=== PATIENT | female | born 1980 | race Caucasian/White ===

== ENCOUNTER 2019-12-05 11:43 | Outpatient (CLI) | payer MEDICAID, SELFPAY ==
[2019-12-05 12:15] LABS: Basophils # 0.1 10^3/uL (0.0-0.1); Basophils % 0.6 %; Eosinophils # 0.1 10^3/uL (0.0-0.8); Eosinophils % 1.1 %; Hematocrit 48.7 % (37.0-47.0); Hemoglobin 15.7 g/dL (11.5-15.3); LAB Peripheral Smear Sent for Review; Lymphocytes # 2.4 10^3/uL (0.8-4.8); Lymphocytes % 21.7 %; Mean Corpuscular HGB Conc 32.2 g/dL (30.0-36.0); Mean Corpuscular Hemoglobin 30.7 pg (28.0-34.0); Mean Corpuscular Volume 95.1 fL (81-99); Mean Platelet Volume 9.1 fL (7.4-10.4); Monocytes # 0.9 10^3/uL (0.2-0.9); Monocytes % 8.1 %; Neutrophils # 7.4 10^3/uL (1.8-7.7); Neutrophils % 68.1 %; Nucleated Red Blood Cells % 0 %; Platelet Count 249 10^3/cmm (130-400); Red Blood Count 5.12 10^6/uL (4.1-5.3); Red Cell Distribution Width 12.6 % (12.1-15.1); White Blood Count 10.9 10^3/uL (4.0-10.0)
[2019-12-11 08:27] LABS: CALR Exon 9 Mutation NOT DETECTED (NOT DETECTED); CSF3R Exon 14/17 Mutation NOT DETECTED (NOT DETECTED); JAK2 Exon 12 Mutation NOT DETECTED (NOT DETECTED); JAK2 V617 Block Specimen ID NG; JAK2 V617 Clinical Indication NG; JAK2 V617 Mutation NOT DETECTED (NOT DETECTED); JAK2 V617 Specimen Source NG; MPL Exon 12 Mutation NOT DETECTED (NOT DETECTED)
== END 2019-12-05 11:44 | disposition home or self-care (01) ==
LOC: LAB 11:49
PROVIDERS: PCP Family Medicine; Visit Provider Family Medicine
DX: D72.829 Elevated white blood cell count, unspecified (principal); D75.1 Secondary polycythemia
CPT/HCPCS: 36415; 80500; 85025

== ENCOUNTER → 2020-01-09 13:48 | Outpatient (BNVA) | payer MEDICAID, SELFPAY | PROVIDERS: PCP Family Medicine; Visit Provider Obstetrics & Gynecology | DX: Z30.9 Encounter for contraceptive management, unspecified (principal) | CPT/HCPCS: 81025 ==

== ENCOUNTER → 2020-04-23 10:59 | Outpatient (BNVA) | payer MEDICAID, SELFPAY | PROVIDERS: PCP Family Medicine; Visit Provider Obstetrics & Gynecology | DX: N83.291 Other ovarian cyst, right side (principal); R10.2 Pelvic and perineal pain | CPT/HCPCS: 76830 ==

== ENCOUNTER → 2020-05-08 08:44 | Outpatient (BNVA) | payer MEDICAID, SELFPAY | PROVIDERS: PCP Family Medicine; Visit Provider Obstetrics & Gynecology | DX: Z11.59 Encounter for screening for other viral diseases (principal) | CPT/HCPCS: 87635 ==

== ENCOUNTER 2020-05-13 07:59 | Day surgery (SDC) | payer MEDICAID, SELFPAY ==
[2020-05-11 11:10] VITALS: BMI 26.6
--- NOTE | 2020-05-11 11:51 | SUR.PREOP ---
Anesthesia unavailable to see patient at preop visit. Was tied up in ER with an airway. Will see day of surgery.
[2020-05-11 12:44] LABS: Add Urine Microscopic? NO
[2020-05-11 12:49] LABS: Basophils # 0.1 10^3/uL (0.0-0.1); Basophils % 0.5 %; Eosinophils # 0.2 10^3/uL (0.0-0.8); Eosinophils % 1.1 %; Hematocrit 46.9 % (37.0-47.0); Hemoglobin 15.2 g/dL (11.5-15.3); Lymphocytes # 3.2 10^3/uL (0.8-4.8); Lymphocytes % 21.4 %; Mean Corpuscular HGB Conc 32.4 g/dL (30.0-36.0); Mean Corpuscular Hemoglobin 31.2 pg (28.0-34.0); Mean Corpuscular Volume 96.3 fL (81-99); Mean Platelet Volume 10.2 fL (7.4-10.4); Monocytes # 0.8 10^3/uL (0.2-0.9); Monocytes % 5.5 %; Neutrophils # 10.56 10^3/uL (1.8-7.7); Neutrophils % 71.1 %; Nucleated Red Blood Cells % 0 %; Platelet Count 242 10^3/cmm (130-400); Red Blood Count 4.87 10^6/uL (4.1-5.3); Red Cell Distribution Width 12.7 % (12.1-15.1); White Blood Count 14.9 10^3/uL (4.0-10.0)
[2020-05-11 12:51] LABS: OR HCG Qualitative Urine Negative (Negative)
[2020-05-11 12:56] LABS: Bilirubin Urine Neg (Negative); Blood Urine Neg (Negative); Glucose Urine UA Norm (Normal); Ketones Urine Negative (Negative); Leukocyte Esterase Urine Negative (Negative); Nitrate Urine Negative (Negative); Protein Urine Neg (Negative); Urine Appearance Clear (CLEAR); Urine Color Yellow (Yellow); Urobilinogen Urine Neg (Negative); pH Urine 5 (5-7)
[2020-05-11 13:06] LABS: Alanine Aminotransferase 15 U/L (0-33); Albumin Level 4.4 g/dL (3.5-5.2); Alkaline Phosphatase 73 IU/L (35-105); Anion Gap 13.9 (5-19); Aspartate Amino Transferase 15 U/L (0-32); Blood Urea Nitrogen 16 mg/dL (6-20); Carbon Dioxide 26 mmol/L (22-29); Chloride 105 mmol/L (98-107); Globulin 2.5 g/dL (1.3-4.6); Glomerular Filtration Rate 138.1 mL/min (90-130); Glucose 106 mg/dL (65-115); Osmolality Calculated 294 mOsm/kg (285-295); Potassium 3.9 mmol/L (3.5-5.1); Sodium 141 mmol/L (136-145); Total Bilirubin 0.3 mg/dL (0.15-1.2); Total Protein 6.9 g/dL (6.6-8.7)
[2020-05-13] VITALS (7 sets, daily range): BP systolic 86–131; BP diastolic 57–98; PULSE 70–93; RESP 16–26; TEMP 36.1–36.6; O2SAT 93–100
[2020-05-13 09:06] LABS: HCG Qualitative Urine. Negative (Negative)
--- NOTE | 2020-05-13 09:22 | P.ANESASSM_ITS ---
Pre-Anesthetic Assessment Pre-Anesthetic Assessment: Height/Weight: Height 1.63 m Weight 70.307 kg Temp Pulse Resp BP Pulse Ox 97.6 F 70 16 94/69 99 05/13/20 09:12 05/13/20 09:12 05/13/20 09:12 05/13/20 09:12 05/13/20 09:12 Preop Diagnosis: Pelvic pain Proposed Procedure: Operation Date: 05/13/20 09:45 Proposed Procedures p Laparoscopy Diagnostic 43877 R10.2(Not Applicable) - Kin Khan MD Familial anesthetic complications: None Was Beta Isamar taken within 24 hours: N/A Last intake: Intake Last Liquid Date 05/12/20 Last Liquid Time 21:00 Last Solid Date 05/12/20 Last Solid Time 21:00 Social: Social History: Tobacco and No alcohol Exam: Pre-Anes Outpt Exam: alert, oriented x 3, clear to auscultation bilaterally and regular rate & rhythm Airway: Cervical ROM: WNL MP: 2 Dentition: Chipped Pulmonary: Pulmonary: Asthma Comments: I had a hole in my lung when i was a baby and they just let it close - patient denotes no current respiratory issues other than asthma Metabolic: Metabolic: DM and Hyperlipidemia Neuropsych: Neuropsych: Neuropathy Comments: glaucoma Anesthetic Plan: ASA status: 2 PFSH Anesthesia PFSH: Medical History Encounter for surveillance of contraceptive pills Started on Loestrin 08/12 with iron in March 2014. -Hemoglobin on 05/22/2014--> 10.8<15.4/46.5> 266 -TSH-->2.91 Surgical History H/O breast surgery (~2010) Right breast lumpectomy H/O eye surgery reports having surgery on bilateral eyes for a squint.She also reports having tubes in her ears H/O foot surgery (~1993) Family History Father Diabetes Grandfather Diabetes Heart disease Grandmother Cancer Maternal grandmother - Colon cancer Social History (Updated 05/11/20 @ 08:22 by Ana Farmer RN) Smoking and tobacco status: current every day smoker cigarettes Packs smoked per day: 1 Alcohol intake: never Other details last substance use: Denies drug use Female Reproductive History: Date of last menstrual period: 10/15/19 Data Anesthesia CBC & Chem 7: 05/11/20 11:35 05/11/20 11:35 Other Labs: Laboratory Results - last 48 hr 05/11/20 05/11/20 05/11/20 11:25 11:25 11:35 WBC 14.9 H RBC 4.87 Hgb 15.2 Hct 46.9 MCV 96.3 MCH 31.2 MCHC 32.4 RDW 12.7 Plt Count 242 MPV 10.2 Neut % (Auto) 71.1 Lymph % (Auto) 21.4 Pepin % (Auto) 5.5 Eos % (Auto) 1.1 Baso % (Auto) 0.5 Neut # (Auto) 10.56 H Lymph # (Auto) 3.2 Pepin # (Auto) 0.8 Eos # (Auto) 0.2 Baso # (Auto) 0.1 Nucleated RBC % (auto) 0 Nucleated RBCs # 0.0 Sodium Potassium Chloride Carbon Dioxide Anion Gap BUN Creatinine GFR Calculation Glucose Calculated Osmolality Calcium Total Bilirubin AST ALT Alkaline Phosphatase Total Protein Albumin Globulin HCG, Qual Urine Color Yellow Urine Appearance Clear Urine pH 5 Ur Specific Hamilton 1.020 Urine Protein Neg Urine Glucose (UA) Norm Urine Ketones Negative Urine Blood Neg Urine Nitrate Negative Urine Bilirubin Neg Urine Urobilinogen Neg Ur Leukocyte Esterase Negative Urine HCG, Qual Negative Blood Type Rho(D) Type Antibody Screen 05/11/20 05/11/20 05/13/20 11:35 11:35 08:50 WBC RBC Hgb Hct MCV MCH MCHC RDW Plt Count MPV Neut % (Auto) Lymph % (Auto) Pepin % (Auto) Eos % (Auto) Baso % (Auto) Neut # (Auto) Lymph # (Auto) Pepin # (Auto) Eos # (Auto) Baso # (Auto) Nucleated RBC % (auto) Nucleated RBCs # Sodium 141 Potassium 3.9 Chloride 105 Carbon Dioxide 26 Anion Gap 13.9 BUN 16 Creatinine 0.5 GFR Calculation 138.1 H Glucose 106 Calculated Osmolality 294 Calcium 9.0 Total Bilirubin 0.3 AST 15 ALT 15 Alkaline Phosphatase 73 Total Protein 6.9 Albumin 4.4 Globulin 2.5 HCG, Qual Negative Urine Color Urine Appearance Urine pH Ur Specific Hamilton Urine Protein Urine Glucose (UA) Urine Ketones Urine Blood Urine Nitrate Urine Bilirubin Urine Urobilinogen Ur Leukocyte Esterase Urine HCG, Qual Blood Type O Positive Rho(D) Type Positive Antibody Screen Negative Cardiac Studies: No Data to Display
[2020-05-13 09:24] LABS: Glucose Point of Care 122 mg/dL (70-110)
[2020-05-13] MEDS: sodium chloride 0.9% 500 ML IV (09:27)
[2020-05-13] MEDS: midazolam 1 mg/mL INJ 2 mL 2 MG IVP (09:28)
[2020-05-13] MEDS: scopolamine 1.5 Patch 1 PATCH TRANSDERMA (09:28)
[2020-05-13] MEDS: sodium chloride 0.9% 1,000 ML 30 ML IV (10:13)
[2020-05-13] MEDS: vancomycin 1,000 MG in sodium chloride 0.9% 250 ML 250 MG IV (10:49)
--- NOTE | 2020-05-13 12:01 | W.PM.OPSUD ---
Surgery/Procedure H&P Update DATE OF PROCEDURE: May 13, 2020 DATE H&P PERFORMED: 05/11/20 H&P UPDATE INFORMATION: I have reviewed H&P completed within last 30 days, I have examined patient prior to procedure and No changes to prior documentation PREOP DIAGNOSIS: Pelvic pain PLANNED PROCEDURE: Operation Date: 05/13/20 09:45 Proposed Procedures p Laparoscopy Diagnostic 90538 R10.2(Not Applicable) - Kin Khan MD
--- NOTE | 2020-05-13 13:12 | P.OP_ITS ---
Operative Report Date of procedure: May 13, 2020 Pre-op Diagnosis: Pelvic pain Post-op diagnosis: same Post-op Findings: Mild endometriosis Procedure Done: Diagnostic laparoscopy. Space Fulguration of endometriosis lesions Pathology: none sent Surgeon: Kin Zapata MD Anesthesia: General Estimated blood loss (mL): 5 IV fluids (mL): 900 Urine output (mL): 300 Condition: critical Disposition: PACU Procedure: DESCRIPTION OF PROCEDURE: After informed consent, the patient was taken to the operating room where general anesthesia was administered. The patient was examined under anesthesia and found to have a normal uterus with normal adnexa. She was placed in the dorsal lithotomy position and prepped and draped in sterile fashion. Pre- Procedure Time-Out verifying the correct patient identity, correct procedure verified with consent, correct site and side, correct patient position, availability of correct implants and any special equipment or requirements was performed and acknowledge by the OR team. A weighted speculum was placed in the vagina, and the anterior lip of cervix was grasped with the single toothed tenaculum. A uterine manipulator was advanced into the endocervical. Tenaculum was removed after uterine manipulator was secured. The speculum was removed from the vagina. An intraumbilical incision was made with a scalpel. While tenting up on the abdomen, a Verres needle with sleeve was admitted into the intra-abdominal cavity. A saline drop test was performed and noted to be within normal limits. Pneumoperitoneum was attained with 4 liters of carbon dioxide. The Verres needle was removed. A 5 mm trocar and sleeve were admitted into the abdomen and laparoscopic confirmation of location was achieved, A second incision was made 3 cm above the symphysis pubis, and a 5 mm trocar and sleeve were admitted into the abdomen under direct, laparoscopic visualization without complication. A survey revealed normal abdominal anatomy but pelvic survey shows normal uterus with mild endometriosis lesions on the inferior posterior aspect by left uterosacral ligament. The left and right adnexa are normal. A 5 mm blunt probe was advanced through the second trocar sleeve, and light manipulation of ovaries and uterus to assess the posterior aspects was performed. Fulguration of endometriosis lesions was performed with bipolar Voyant device without complications. No bleeding noted. The instruments were removed from the patient's abdomen and carbon dioxide was allowed to escape from the abdomen. The skin incisions were repair with 3-0 Vicryl and Exofin adhesive. The instruments were removed from the vagina, and excellent hemostasis was noted. The patient tolerated the procedure well, and sponge, lap and needle count were correct times two. The patient taken to the recovery room in good condition.
--- NOTE | 2020-05-13 13:15 | SUR.PHASEI ---
1314 PATIENT TO PACU. ORAL AIRWAY REMOVED ON ARRIVAL. SPO2 96% ON SIMPLE MASK. INCISION TO ABDOMEN. CDI
--- NOTE | 2020-05-13 13:39 | SUR.PHASEI ---
7862 PATIENT TO OPS, NEEDS TO VOID. PATIENT ASSISTED TO BSC. GAIT UNSTEADY. INCISION TO ABDOMEN, CDI.
[2020-05-13] MEDS: ibuprofen 800 mg tablet PO (14:08)
== END 2020-05-13 14:54 | disposition home or self-care (01) ==
PROVIDERS: Anesthesiology; Visit Provider Obstetrics & Gynecology
PROC: (CPT 49320; principal; 2020-05-13 09:45)
DX: N80.9 Endometriosis, unspecified (principal); J45.909 Unspecified asthma, uncomplicated; E78.5 Hyperlipidemia, unspecified; E11.40 Type 2 diabetes mellitus with diabetic neuropathy, unspecified; F17.210 Nicotine dependence, cigarettes, uncomplicated
CPT/HCPCS: 58662; 12345; 36415; 36416; 80053; 81003; 81025; 82962; 84703; 85025; 86850; 86900; 96365; 96368; 96374; 96523; J1100; J2250; J2405; J2704; J2710; J3010; J3370; J3490; J7030; J7040; J7050

== ENCOUNTER → 2020-10-02 09:46 | Outpatient (BNVA) | payer MEDICAID, SELFPAY | PROVIDERS: Visit Provider Obstetrics & Gynecology | DX: R11.0 Nausea (principal); N80.9 Endometriosis, unspecified | CPT/HCPCS: 81025 ==

== ENCOUNTER → 2021-01-29 10:38 | Outpatient (BNVA) | payer MEDICAID, SELFPAY | PROVIDERS: Visit Provider Obstetrics & Gynecology | DX: Z12.4 Encounter for screening for malignant neoplasm of cervix (principal) | CPT/HCPCS: 88175 ==

== ENCOUNTER 2022-04-19 10:42 | Outpatient (CLI) | payer MEDICAID, SELFPAY ==
--- NOTE | 2022-04-19 10:57 | MM_ITS ---
WS: [id number] BILATERAL SCREENING DIGITAL TOMOSYNTHESIS MAMMOGRAM WITH CAD HISTORY: Screening exam. COMPARISON: 05/03/2011 Bilateral CC and MLO views with tomosynthesis and synthetic mammography submitted. Computer aided det ection analyzed. Breast composition: There are scattered areas of fibroglandular density. No suspicious masses, microc alcifications or architectural distortion. MM/[place] [id number] IMPRESSION: BI-RADS: 1-Negative FOLLOW UP: 1 Year Follow-up
== END 2022-04-19 10:43 | disposition home or self-care (01) ==
LOC: RAD 10:43
PROVIDERS: PCP Family Medicine; Visit Provider Obstetrics & Gynecology
DX: Z12.31 Encounter for screening mammogram for malignant neoplasm of breast (principal)
CPT/HCPCS: 77063; 77067

== ENCOUNTER 2022-05-13 06:44 | Outpatient (CLI) | payer MEDICAID, SELFPAY ==
--- NOTE | 2022-05-13 07:00 | US_ITS ---
WS: [id number] ULTRASOUND SOFT TISSUES RIGHT upper extremity. HISTORY: Z30.46 - Encounter for surveillance of implantable subdermal control. Evaluate locatio n of Nexplanon. COMPARISON: None available. TECHNIQUE: 2-D and color Doppler imaging is submitted. Just beneath this can surface in the RIGHT upper extremity is a focal echogenic dot .That corresponds with the Nexplanon device in transverse plane. This device is 0.25 cm below the skin surface. Devic e extends over a length of 3.7 cm. US/US soft tissue/extremity [id number] IMPRESSION: Nexplanon device is noted just beneath the skin surface of the RIGHT upper ext remity.
== END 2022-05-13 06:45 | disposition home or self-care (01) ==
LOC: RAD 06:45
PROVIDERS: PCP Family Medicine; Visit Provider Obstetrics & Gynecology
DX: Z30.46 Encounter for surveillance of implantable subdermal contraceptive (principal)
CPT/HCPCS: 76882

== ENCOUNTER → 2022-05-27 15:07 | Outpatient (BNVA) | payer MEDICAID, SELFPAY | PROVIDERS: PCP Family Medicine; Visit Provider Obstetrics & Gynecology | DX: R10.32 Left lower quadrant pain (principal) | CPT/HCPCS: 76830 ==

== ENCOUNTER → 2022-05-31 10:55 | Outpatient (BNVA) | payer MEDICAID, SELFPAY | PROVIDERS: PCP Family Medicine; Visit Provider Obstetrics & Gynecology | DX: N91.0 Primary amenorrhea (principal) | CPT/HCPCS: 83001 ==

== ENCOUNTER 2022-08-10 07:15 | Day surgery (SDC) | payer MEDICAID, SELFPAY ==
[2022-08-09 13:12] VITALS: BMI 27.6
[2022-08-09 13:31] LABS: Add Urine Microscopic? NO; Charge for UA Resulting for Rev
[2022-08-09 13:35] LABS: Basophils % 0.4 %; Eosinophils # 0.2 10^3/uL (0.0-0.8); Eosinophils % 1.6 %; Hematocrit 47.3 % (37.0-47.0); Hemoglobin 15.4 g/dL (11.5-15.3); Lymphocytes # 2.7 10^3/uL (0.8-4.8); Lymphocytes % 28.3 %; Mean Corpuscular HGB Conc 32.6 g/dL (30.0-36.0); Mean Corpuscular Volume 95.2 fl (81-99); Mean Platelet Volume 9.4 fL (7.4-10.4); Monocytes # 0.7 10^3/uL (0.2-0.9); Monocytes % 7.5 %; Neutrophils # 5.97 10^3/uL (1.8-7.7); Nucleated Red Blood Cells % 0 %; Platelet Count 226 10^3/cmm (130-400); Red Blood Count 4.97 10^6/uL (4.1-5.3); Red Cell Distribution Width 12.4 % (12.1-15.1); White Blood Count 9.6 10^3/uL (4.0-10.0)
[2022-08-09 13:50] LABS: Alanine Aminotransferase 18 U/L (0-33); Albumin Level 4.3 g/dL (3.5-5.2); Alkaline Phosphatase 74 U/L (35-105); Anion Gap 13.7 (5-19); Aspartate Amino Transferase 14 U/L (0-32); Blood Urea Nitrogen 11 mg/dL (6-20); Calcium 8.7 mg/dL (8.5-10.5); Carbon Dioxide 27 mmol/L (22-29); Chloride 101 mmol/L (98-107); Creatinine Clr Calc Pharmacy 151.8629; Globulin 2.4 g/dL (1.3-4.6); Glomerular Filtration Rate 136.6 mL/min (90-130); Glucose 106 mg/dL (65-115); Osmolality Calculated 286 mOsm/kg (285-295); Potassium 3.7 mmol/L (3.5-5.1); Sodium 138 mmol/L (136-145); Total Bilirubin 0.4 mg/dL (0.15-1.2); Total Protein 6.7 g/dL (6.6-8.7)
[2022-08-09 14:09] LABS: Bilirubin Urine Neg (Negative); Blood Urine Neg (Negative); Glucose Urine UA Norm (Normal); Ketones Urine Negative (Negative); Leukocyte Esterase Urine Negative (Negative); Nitrate Urine Negative (Negative); Protein Urine Neg (Negative); Specific Gravity, Urine 1.015 (1.005-1.030); Urine Appearance Clear (CLEAR); Urine Color Yellow (Yellow); Urobilinogen Urine Neg (Negative); pH Urine 5 (5-7)
--- NOTE | 2022-08-09 14:09 | P.ANESASSM_ITS ---
Pre-Anesthetic Assessment Height/Weight: Height 1.65 m Weight 75.296 kg Preop Diagnosis: Chronic pelvic pain, Operation Date: 08/10/22 08:55 Proposed Procedures p Laparoscopy 72995,R10.2(Not Applicable) - Kin Khan MD Familial anesthetic complications: none Was Beta Isamar taken within 24 hours: N/A Was Clonidine taken within 24 hours: N/A Social Tobacco and No alcohol Exam alert, oriented x 3 and regular rate & rhythm Airway Submandibular: within normal limits Cervical ROM: within normal limits Mallampati: Class II Dentition: chipped and loose Pulmonary Asthma and Chronic Obstructive Pulmonary Disease Metabolic Hyperlipidemia Neuropsych Anxiety, Depression, Headache and Neuropathy Anesthetic Plan ASA status: 3 Anesthesia: General Other: Glaucoma Medications/Allergies Home Medications Medication Instructions Recorded Confirmed Last Taken Type albuterol sulfate 90 mcg/actuation 2 puff inhalation DAILY PRN 01/09/20 08/09/22 Unknown History aerosol inhaler (ProAir HFA) Shortness Of Breath Or Wheezing fluticasone propionate 110 1 puff inhalation DAILY 01/09/20 08/09/22 08/09/22 History mcg/actuation HFA aerosol inhaler (Flovent HFA) prenat.vits,edmond,wpq-zphl-bwklm 1 tab PO DAILY 01/09/20 08/09/22 08/09/22 History simvastatin 5 mg tablet 5 mg PO DAILY 01/09/20 08/09/22 08/09/22 History etonogestrel 68 mg subdermal See Rx Instructions .Route .COMPLEX 04/13/20 08/09/22 Unknown History implant (Nexplanon) duloxetine 30 mg capsule,delayed 60 mg PO DAILY 01/08/21 08/09/22 08/09/22 History release (Cymbalta) amitriptyline 10 mg tablet 10 mg PO BEDTIME 04/12/21 08/09/22 08/08/22 History elagolix 150 mg tablet (Orilissa) 150 mg PO DAILY Endometriosis, 04/15/22 08/09/22 08/09/22 Rx pelvic pain 90 days #90 tabs ibuprofen 800 mg tablet 800 mg PO TID PRN pain #60 tabs 06/27/22 08/09/22 08/09/22 Rx latanoprost 0.005 % eye drops 1 drp ophthalmic (eye) QPM 0108/09/22 08/08/22 History Allergies Allergy/AdvReac Type Severity Reaction Status Date / Time acetaminophen [From Vicodin] Allergy Triggers Verified 08/08/22 07:53 her asthma hydrocodone [From Vicodin] Allergy Triggers Verified 08/08/22 07:53 her asthma latex Allergy ALGY-Rash Verified 08/09/22 13:05 Penicillins Allergy Hives, rash Verified 08/08/22 07:53 codeine AdvReac Triggers Verified 08/08/22 07:53 her asthma [facility] Anesthesia Medical History Aftercare following surgery of the genitourinary system Surgical History H/O breast surgery (~2010) Right breast lumpectomy H/O eye surgery reports having surgery on bilateral eyes for a squint.She also reports having tubes in her ears H/O foot surgery (~1993) Family History Father Diabetes Grandfather Diabetes Heart disease maternal Grandmother Cancer Maternal grandmother - Colon cancer Heart disease maternal Stroke maternal Thyroid condition maternal Family/Other Heart disease, Onset Age: 65 maternal uncle Breast cancer maternal cousin, onset unknown Colon cancer, Onset Age: 45 maternal cousin Mother Heart disease Hyperlipidemia Hypertension Thyroid condition Denies family history of Ovarian cancer Clotting disorder Anesthesia complication Bleeding disorder Uterine cancer Social History (Updated 05/31/22 @ 10:22 by Ana Farmer, RN) Other details last substance use: Denies drug use Female Reproductive History Date of last menstrual period: 10/15/19 Data Anesthesia 08/09/22 13:25 08/09/22 13:25 Short CBC 08/09/22 Range/Units 13:25 WBC 9.6 (4.0-10.0) 10^3/uL Hgb 15.4 H (11.5-15.3) g/dL Hct 47.3 H (37.0-47.0) % MCV 95.2 (81-99) fl Plt Count 226 (130-400) 10^3/cmm Neut % (Auto) 62.0 % Neut # (Auto) 5.97 (1.8-7.7) 10^3/uL BMP 08/09/22 13:25 Sodium 138 Potassium 3.7 Chloride 101 Carbon Dioxide 27 BUN 11 Creatinine 0.5 Glucose 106 Calcium 8.7 Liver Function 08/09/22 Range/Units 13:25 Total Bilirubin 0.4 (0.15-1.2) mg/dL AST 14 (0-32) U/L ALT 18 (0-33) U/L Alkaline Phosphatase 74 (35-105) U/L Albumin 4.3 (3.5-5.2) g/dL Cardiac Studies: No Data to Display
[2022-08-09 14:37] LABS: OR HCG Qualitative Urine Negative (Negative)
[2022-08-10] VITALS (10 sets, daily range): BP systolic 93–129; BP diastolic 53–85; PULSE 70–91; RESP 16–20; TEMP 36.2–36.7; O2SAT 92–99
--- NOTE | 2022-08-10 07:44 | P.ANESUD_ITS ---
Pre-Anesthetic Update Pre-Anesthetic Assessment: Date of Surgery/Procedure: 08/10/22 Preop Cristin gnosis: Chronic pelvic pain, Proposed Procedure: Operation Date: 08/10/22 08:55 Proposed Procedures p Laparoscopy 58360,R10.2(Not Applicable) - Kin Khan MD Any changes to Pre-Anesthetic Assessment?: No Last Intake: Intake Last Liquid Date 08/09/22 Last Liquid Time 20:00 Last Solid Date 08/09/22 Last Solid Time 14:30 Labs Last 48hrs: Short CBC 08/09/22 Range/Units 13:25 WBC 9.6 (4.0-10.0) 10^3/ uL Hgb 15.4 H (11.5-15.3) g/dL Hct 47.3 H (37.0-47.0) % MCV 95.2 (81-99) fl Plt Count 226 (130-400) 10^3/c mm Neut % (Auto) 62.0 % Neut # (Auto) 5.97 (1.8-7.7) 10^3/u L BMP 08/09/22 13:25 Sodium 138 Potassium 3.7 Chloride 101 Carbon Dioxide 27 BUN 11 Creatinine 0.5 Glucose 106 Calcium 8.7 Liver Function 08/09/22 Range/Units 13:25 Total Bilirubin 0.4 (0.15-1.2) mg/dL AST 14 (0-32) U/L ALT 18 (0-33) U/L Alkaline Phosphata se 74 (35-105) U/L Albumin 4.3 (3.5-5.2) g/dL Urine 08/09/22 Range/Units Unknown Urine Color Yellow (Yellow) Urine Appearance Clear (CLEAR) Urine pH 5 (5-7) Ur Specific Gravit y 1.015 (1.005-1.030) Urine Protein Neg (Negative) Urine Glucose (UA) Norm (Normal) Urine Ketones Negative (Negative) Urine Nitrate Negative (Negative) Urine Bilirubin Neg (Negative) Ur Leukocyte Ana ase Negative (Negative) Blood Bank 08/09/22 13:25 Blood Type O Positive Rho(D) Type Positive Antibody Screen Negative Vitals: Temperature 98.1 F 08/10/22 07:32 Temperature Source Temporal Artery S can 08/10/22 07:32 Pulse Rate 75 08/10/22 07:32 Respiratory Rate 17 08/10/22 07:32 Blood Pressure 129/85 08/10/22 07:32 Blood Pressure Kelly n 99 08/10/22 07:32 Pulse Oximetry 99 08/10/22 07:32 Oxygen Delivery Me thod 08/10/22 07:32 Exam: Pre-Anes Outpt Exam: alert, oriented x 3, clear to auscultation bilaterally and regular rate & rhythm Cardiac Studies: No Data to Display
[2022-08-10] MEDS: sodium chloride 0.9% 500 ML IV (07:46)
[2022-08-10] MEDS: vancomycin 1,000 MG in sodium chloride 0.9% 250 ML 250 MG IV (08:06)
--- NOTE | 2022-08-10 08:38 | W.PM.OPSUD ---
Surgery/Procedure H&P Update DATE OF PROCEDURE: August 10, 2022 DATE H&P PERFORMED: 08/08/22 H&P UPDATE INFORMATION: I have reviewed H&P completed within last 30 days, I have examined patient prior to procedure and No changes to prior documentation PREOP DIAGNOSIS: Chronic pelvic pain, PLANNED PROCEDURE: Operation Date: 08/10/22 08:55 Proposed Procedures p Laparoscopy 02663,R10.2(Not Applicable) - Kin Khan MD
[2022-08-10] MEDS: sodium chloride 0.9% 1,000 ML 30 ML IV (09:17)
--- NOTE | 2022-08-10 09:39 | PM.OP ---
Operative Report Date of procedure: August 10, 2022 Pre-op diagnosis: Preop Diagnosis Chronic pelvic pain, Post-op diagnosis: Same as above Post-op findings: Normal pelvic organs Procedure done: Diagnostic laparoscopy Implants: None Specimens removed/disposition: None Surgeon: Kin Khan MD Estimated blood loss (mL): 1 IV fluids (mL): 700 Urine output (mL): 400 Complications: None Findings: Normal pelvic anatomy. No [employer] REFINISHER pathololgy Procedure: After informed consent, the patient was taken to the operating room where general anesthesia was administered. The patient was examined under anesthesia and found to have a normal uterus with normal adnexa. She was placed in the dorsal lithotomy position and prepped and draped in sterile fashion. Pre-Procedure Time-Out verifying the correct patient identity, correct procedure verified with consent, correct site and side, correct patient position, availability of correct implants and any special equipment or requirements was performed and acknowledge by the OR team. A weighted speculum was placed in the vagina, and the anterior lip of cervix was grasped with the single toothed tenaculum. A uterine manipulator was advanced into the endocervical. Tenaculum was removed after uterine manipulator was secured. The speculum was removed from the vagina. An intraumbilical incision was made with a scalpel. While tenting up on the abdomen, a Verres needle with sleeve was admitted into the intra-abdominal cavity. A saline drop test was performed and noted to be within normal limits. Pneumoperitoneum was attained with 4 liters of carbon dioxide. The Verres needle was removed. A 5 mm trocar and sleeve were admitted into the abdomen and laparoscopic confirmation of location was achieved, A second incision was made 3 cm above the symphysis pubis, and a 5 mm trocar and sleeve were admitted into the abdomen under direct, laparoscopic visualization without complication. A survey revealed normal abdominal anatomy. The pelvic survey shows normal uterus, left and right adnexa. A 5 mm blunt probe was advanced through the second trocar sleeve, and light manipulation of ovaries and uterus to assess the posterior aspects was performed. No management recruiter pathology noted. Carbon dioxide was allowed to escape from the abdomen. The instruments were removed, and skin cover with a bandage. The instruments were removed from the vagina, and excellent hemostasis was noted. The patient tolerated the procedure well, and sponge, lap and needle count were correct times two. The patient taken to the recovery room in good condition.
--- NOTE | 2022-08-10 11:02 | SUR.PHASEII ---
whitney catheter removed. 400ml of clear light yellow urine in whitney bag patient tolerated well.
[2022-08-10] MEDS: ibuprofen 800 mg tablet PO (11:58)
[2022-08-10] MEDS: ondansetron 2 mg/ML SDV 2 mL 4 MG IVP (12:45)
--- NOTE | 2022-08-10 13:53 | ANE.PACU2 ---
Inpatient post-anesthesia follow up: Airway intact: Yes Vital signs: Temperature 97.2 F Pulse Rate 77 Respiratory Rate 16 Blood Pressure 103/63 Pulse Oximetry 92 Oxygen Delivery Me thod Room Air Oxygen Flow Rate 2 Fraction of Inspir ed Oxygen Hydration adequate: Yes Nausea and vomiting: No Pain level: 3 Mental status: Baseline
== END 2022-08-10 13:00 | disposition home or self-care (01) ==
PROVIDERS: PCP Family Medicine; Visit Provider Obstetrics & Gynecology
PROC: (CPT 49320; principal; 2022-08-10 08:45)
DX: R10.2 Pelvic and perineal pain (principal); J44.9 Chronic obstructive pulmonary disease, unspecified; E78.5 Hyperlipidemia, unspecified; F41.9 Anxiety disorder, unspecified; F32.A Depression, unspecified; F17.210 Nicotine dependence, cigarettes, uncomplicated
CPT/HCPCS: 49320; 36415; 80053; 81003; 81025; 84703; 85025; 86850; 86900; J1100; J2250; J2405; J2704; J2710; J3010; J3370; J3490; J3535; J7030; J7040; J7050; Q9968

== ENCOUNTER 2024-02-20 15:09 | Outpatient (CLI) | payer MEDICAID, SELFPAY ==
--- NOTE | 2024-02-20 15:30 | MM_ITS ---
WS: [id number] BILATERAL 3D TOMOSYNTHESIS DIGITAL SCREENING MAMMOGRAPHY WITH CAD CLINICAL INFORMATION: Z12.31 - Encounter for screening mammogram for malignant ... HISTORY: Screening mammogram. No current complaints. COMPARISON: 2021 TECHNIQUE: Bilateral CC and MLO views. FINDINGS: The breasts are composed of heterogeneous fibroglandular density tissue, which can limit the detectio n of small underlying mass lesions. No suspicious mass, asymmetry, calcifications, or architectural d istortion. No evidence of malignancy. MM/[place] [id number] IMPRESSION: BI-RADS: 1-Negative FOLLOW UP: 1 Year Follow-up Recommend return to annual screening mammography.
== END 2024-02-20 15:10 | disposition home or self-care (01) ==
LOC: RAD 15:10
PROVIDERS: PCP Family Medicine; Visit Provider Obstetrics & Gynecology
DX: Z12.31 Encounter for screening mammogram for malignant neoplasm of breast (principal)
CPT/HCPCS: 77063; 77067

== ENCOUNTER 2025-02-17 09:54 | Outpatient (CLI) | payer MEDICAID, SELFPAY ==
--- NOTE | 2025-02-17 | MM_ITS ---
WS: [id number] BILATERAL SCREENING DIGITAL TOMOSYNTHESIS MAMMOGRAM WITH CAD HISTORY: ANNUAL SCREENING COMPARISON: 04/19/2022, 02/20/2024 Bilateral CC and MLO views with tomosynthesis and synthetic mammography submitted. Computer aided detection analyzed. Breast composition: There are scattered areas of fibroglandular density. No suspicious masses, microcalcifications or architectural distortion. Stable 2 mm mass in the anterior LEFT breast central to the nipple. No suspicious grouping of calcifications. Intramammary lymph node upper outer quadrant LEFT breast. MM/MM scr tomosynthesis [id number] IMPRESSION: BI-RADS: 2 - Benign. FOLLOW UP: 1 Year Follow-up
== END 2025-02-17 09:55 | disposition home or self-care (01) ==
LOC: RAD 09:56
PROVIDERS: PCP Family Medicine; Visit Provider Family Medicine
DX: Z12.31 Encounter for screening mammogram for malignant neoplasm of breast (principal); N63.20 Unspecified lump in the left breast, unspecified quadrant
CPT/HCPCS: 77063; 77067